=== PATIENT | female | born 1965 | race Caucasian/White ===

== ENCOUNTER → 2021-03-13 11:53 | Outpatient (CLI) | payer BC, SELFPAY | PROVIDERS: PCP Family Medicine; Visit Provider Obstetrics & Gynecology | DX: R31.9 Hematuria, unspecified (principal); R39.9 Unspecified symptoms and signs involving the genitourinary system | CPT/HCPCS: 87086 ==

== ENCOUNTER → 2022-04-18 15:17 | Outpatient (CLI) | payer BC, SELFPAY ==
[2022-04-18 16:30] LABS: Cancer Antigen 125 9.7 U/mL (0-35)
== END ==
PROVIDERS: PCP Family Medicine; Referring Provider Obstetrics & Gynecology; Visit Provider Obstetrics & Gynecology
DX: N83.201 Unspecified ovarian cyst, right side (principal)
CPT/HCPCS: 36415; 86304

== ENCOUNTER 2022-07-05 06:40 | Day surgery (SDC) | payer BC, SELFPAY ==
[2022-05-21 12:31] VITALS: BMI 26.6
[2022-07-05] VITALS (7 sets, daily range): BP systolic 147–161; BP diastolic 87–97; PULSE 57–75; RESP 12–16; TEMP 36.6–36.9; O2SAT 96–99; BMI 26.6
--- NOTE | 2022-07-05 | PATH_ITS ---
[facility] Accession Number: [id number] No. of containers..01 Tissue . 01 Material submitted: . ovary - BILATERAL FALLOPIAN TUBES AND OVARIES WITH RIGHT PARATUBAL CYST . 01 Diagnosis: Right and Left Fallopian Tubes and Ovaries, Bilateral Salpingo-oophorectomy: Fimbriated fallopians tube with multiple benign benign paratubal cysts. Ovaries with postmenopausal changes. Negative for neoplasia. [facility] 07/09/2022 1659 Local . 01 Electronically signed: . Sahra Massey MD, Pathologist NPI- [id number] . 01 Gross description: . The specimen is received in formalin, labeled with the patient's name, , and bilateral tubes and ovaries, and consists of two unoriented, violaceous, fimbriated fallopian tubes with corresponding attached ovaries measuring 3.0 cm in length and 0.5 cm in diameter. A single attached serous fluid-filled, smooth-lined paratubal cyst is noted measuring 3.2 x 2.8 x 2.3 cm. The corresponding presumed right white-foster, rubbery ovary measures 2.7 x 1.3 x 0.6 cm and weighs 2 g. The ovary is suctioned to reveal pink-white, homogenous cut surfaces. No cysts are identified. The second presumed left violaceous, fimbriated fallopian tube measures 4.3 cm in length and 0.4 cm in diameter. Multiple cystic structures are noted measuring up to 0.3 cm in greatest dimension, containing cloudy serous fluid. The corresponding white, rubbery ovary measures 2.1 x 1.3 x 0.7 cm and weighs 2 g. The ovary is suctioned to reveal white-pink, homogenous cut surfaces with no abnormalities seen. [employer] sections are submitted as follows: A1: First fallopian tube to include one-half of bisected fimbriae. A2: First ovary. A3: Paratubal cyst. A4: Second fallopian tube, one-half of fimbriae. A5: Second ovary. ([id number]) /JAKOB 07/07/2022 1240 Local . 01 Pathologist provided ICD-10: N83.201 . 01 CPT . 023932 Specimen Comment: A courtesy copy of this report has been sent to [phone] Performed at: 01 [facility] [address] [place] [address] [id number] MD Zaid Nichols MD Phone: [phone]
--- NOTE | 2022-07-05 06:47 | P.HPOB_ITS ---
History of Present Illness History of Present Illness Reason for admission: other (right ovarian cyst) Narrative: Dorothy Richard is a 56 year old female with a persistent right ovarian cyst [facility] Medical History Vaginal delivery Surgical History H/O umbilical hernia repair History of tubal ligation Social History household members: spouse Smoking Status: Never smoker alcohol intake: current Meds Home Medications and Allergies Home Medications Medication Instructions Recorded Confirmed Type estradiol 0.01% (0.1 mg/gram) 1 g vaginal DAILY postmenopausal 04/10/22 07/05/22 Rx vaginal cream vaginal atrophy #42.5 grams clobetasol 0.05 % topical ointment 1 applic topical DAILY #30 grams 04/29/22 Rx Allergies Allergy/AdvReac Type Severity Reaction Status Date / Time No Known Drug Allergies Allergy Verified 07/05/22 06:56 Exam Narrative Exam Narrative: Generally: A well-developed, well-nourished female, no acute distress Lungs: Clear to auscultation bilaterally Cardiovascular: Regular rate and rhythm Abdomen: Soft and flat. Well-healed scars. Bimanual exam: A 6 week size anteverted uterus. right adnexal fullness and slight tenderness. extremities: No edema Assessment & Plan Assessment & Plan narrative: Assessment: 56-year-old 3 para 3 with a persistent right ovarian cyst Plan: Laparoscopic removal of both tubes and ovaries The risks, benefits, and alternatives to the procedure were explained to the patient. The risks including bleeding, infection, injury to the bowel, bladder, or ureters. She understands these risks and agrees to proceed. A full par Q was held and consent form was signed.
[2022-07-05] MEDS: LACTATED RINGERS 1,000 ML 100 ML IV (06:58)
--- NOTE | 2022-07-05 07:57 | PM.PREOP ---
Pre-operative Note COVID-19 Criteria for continued procedure: Non-surgical alternatives not available or appropriate per current SOC Interval Note History & Physical reviewed/Exam performed by Physician: Yes Changes to H&P: No H&P completed within 30 days and has changed as indicated here:: 07/05/22
[2022-07-05] MEDS: CEFAZOLIN 2 GM/100 ML PREMIX 100 ML IV (08:07)
--- NOTE | 2022-07-05 08:33 | SUR.OPER ---
Lithotomy on padded OR bed, head on pillow, arms secured on padded arm boards at <90 degrees abduction. Legs secured in padded yellow fins stirrups.
[2022-07-05] MEDS: BUPIVACAINE 0.5% (PF) 30 ML, EPINEPHrine 0.15 MG INJ (09:04)
--- NOTE | 2022-07-05 09:27 | P.OP_ITS ---
Operative Date/Time/Diagnoses Date of procedure: 07/05/22 Time of procedure: 09:28 Pre-op diagnosis: Persistent right ovarian cyst Post-op diagnosis: same Procedure & Clinicians Procedure: Procedures Operation Date: 07/05/22 07:45 Actual Procedure Side Surgeon p Laparoscopic Salpingo-oophorectomy Right Rosana Sumner MD Indications: Persistent right ovarian cyst Surgeon: Rosana Sumner Anesthesia Type: General and Local Operative Notes Findings: 7 cm right paratubal cyst Normal portions of both tubes Normal ovaries Normal liver and gallbladder Normal appendix Closure Type: primary Specimen(s): left tube & ovary and right tube & ovary (with paratubal cyst) Estimated blood loss (mL): 10 Blood products transfused: none Procedure in detail: After informed consent was obtained, the patient was taken to the operating room where she was placed in the dorsal supine position. After adequate general endotracheal anesthesia was achieved, she was placed in the dorsal lithotomy position, and prepped and draped in the usual sterile fashion. A time-out was performed. A bivalve speculum was placed into the vagina and the anterior lip of the cervix grasped with a single-tooth tenaculum. The cervical os was sequentially dilated until the Zumi uterine manipulator could pass easily into the endometrial cavity. The single-tooth tenaculum was removed from the anterior lip of the cervix. The bivalve speculum was removed from the vagina. Attention was then turned to the abdomen where 6 cc of 0.5% Marcaine with epinephrine were injected above the umbilical fold. A 5 mm incision was made. The Veress needle was placed into the peritoneal cavity, and its placement confirmed by aspiration and drop test. The abdominal cavity was insufflated with 3.8 L of CO2. The Veress needle was removed, and a 5 mm trocar was placed without difficulty. Two other incisions were made 4 cm lateral to the midline at the level of the umbilicus after 6 cc of 0.5% Marcaine with epinephrine were injected. These were 5 mm incisions. Two 5 mm trocars were placed under direct visualization. The right ovary and tube were examined. There was a paratubal cyst and not an ovarian cyst on the right side. The infundibulopelvic ligament on the right side was cauterized and cut with the power seal. The mesosalpinx was cauterized and cut all the way down to the cornua of the uterus. This was repeated on the patient's left side. The tubes and ovaries were placed into the pelvis. 6 cc of 0.5% Marcaine with epinephrine were injected above the pubic symphysis. A 12 mm incision was made. A 12 mm trocar was placed under direct visualization. A small endobag was placed through the suprapubic trocar and opened. The tubes and ovaries and the right paratubal cysts were placed into the bag. The trocar was removed. The edges of the bag were brought up through the incision. A spinal needle was placed into the bag and the paratubal cyst was deflated. The bag with the ovaries was removed through the suprapubic incision. The suprapubic incision was closed on the fascia using 0 Vicryl. The abdomen was re-insufflated. There was hemostasis in the pelvis. The pelvis was irrigated with warm normal saline. No bleeding was noted. The instruments were removed from the abdomen. The CO2 was allowed to escape. The suprapubic incision was closed with 2 simple interrupted sutures with 3-0 Vicryl. All of the incisions were closed with 4-0 Monocryl in a subcuticular fashion. Steri- Strips and Allevyn dressings were placed. The Zumi uterine manipulator was removed from the uterus. Sponge, lap, and instrument counts were correct x2. The patient tolerated the procedure well, and was taken to PACU in stable condition. Complications: none Post-operative Condition: stable Disposition: PACU Plan for aftercare: Home after recovery
[2022-07-05] MEDS: HYDROCODONE/ACET 5/325 TABLET 1 TAB PO (09:47)
[2022-07-05] MEDS: ONDANSETRON 4 MG/2 ML INJ IV ×2 (09:47→10:01)
[2022-07-05] MEDS: LACTATED RINGERS 1,000 ML 42 ML IV ×2 (09:59→10:51)
--- NOTE | 2022-07-05 10:06 | SUR.PHASEII ---
Patient remains nauseated and pale; Additional 4 mg of Zofran IV given and second liter of LR initiated.
[2022-07-05] MEDS: ACETAMINOPHEN IV 1,000 MG/100 ML VIAL 400 MG IV (10:50)
== END 2022-07-05 11:34 | disposition home or self-care (01) ==
PROVIDERS: PCP Family Medicine; Referring Provider Obstetrics & Gynecology; Visit Provider Obstetrics & Gynecology
PROC: (CPT 58661; principal; 2022-07-05 07:45)
DX: N83.291 Other ovarian cyst, right side (principal); N83.8 Other noninflammatory disorders of ovary, fallopian tube and broad ligament
CPT/HCPCS: 58661; J0131; J0171; J0690; J1100; J1885; J2250; J2405; J2704; J3010